=== PATIENT | male | born 1940 | race Caucasian/White ===

== ENCOUNTER 2022-03-10 12:43 | Day surgery (SDC) | payer BC, MEDICARE ==
[~2022-03-10] VITALS: Ht 175.3 cm; Wt 63.5 kg
[~2022-03-10 12:43] MED LIST: ATEN50TA2 PO; ATOR1TAB19 PO; DIGO0.123 PO; DILT1CAP5 PO; FARX1TAB3 PO; JANU100T PO; METF500T13 PO; VITA100093 PO; VITMTA PO; WARF-58 PO; ceFAZolin SOD 2 GM in IV 1 EA IV ONE
[2022-03-10] MEDS ORDERED: LIDOCAINE 1% SDV 30ML VIAL As Ordered ONE (13:14)
[2022-03-10] MEDS ORDERED: POLYSPORIN OPHTH OINT 3.5 GM As Ordered ONE (13:15)
[2022-03-10 13:48] LABS: INR 1.26; PROTHROMBIN TIME 16.1 SECONDS (12.5-14.5)
[2022-03-10 13:49] LABS: PARTIAL THROMBOPLASTIN TIME 36.7 SECONDS (24.8-34.2)
[2022-03-10] MEDS ORDERED: propofoL 200 MG/20 ML VIAL As Ordered ONE (13:52)
[2022-03-10] MEDS ORDERED: MIDAZOLAM INJ 2MG/2ML VIAL As Ordered ONE (13:52)
[2022-03-10] MEDS ORDERED: fentaNYL 100 MCG/2 ML INJECTION As Ordered ONE (13:52)
[2022-03-10] MEDS ORDERED: PHENYLephrine 500MCG 5ML (100MCG/ML) SYRINGE As Ordered ONE (14:27)
[2022-03-10 16:00] VITALS: BP 132/70
== END 2022-03-10 16:10 | disposition home or self-care (01) ==
LOC: M SDC 12:43
PROVIDERS: ATTEND Internal Medicine Cardiovascular Disease
DX: Z45.09 Encounter for adjustment and management of other cardiac device (principal); I48.91 Unspecified atrial fibrillation; I10 Essential (primary) hypertension; E11.9 Type 2 diabetes mellitus without complications; Z79.01 Long term (current) use of anticoagulants; Z79.84 Long term (current) use of oral hypoglycemic drugs; Z79.899 Other long term (current) drug therapy
CPT/HCPCS: 33228; 36415; 85610; 85730; 87635; C1785; J0690; J2250; J2370; J3010